=== PATIENT | female | born 1990 | race Caucasian/White ===

== ENCOUNTER 2017-12-12 22:35 | Emergency (ER) | payer SELFPAY ==
[~2017-12-12] VITALS: Ht 162.6 cm; Wt 69.9 kg
--- NOTE | 2017-12-12 23:24 | NUR ---
DR URSULA PRASAD MD AT BEDSIDE FOR MSE.
[2017-12-12] MEDS ORDERED: NEOMY/BACITRA/POLYMYXIN B OINT UD PACKET TP ONE ×2 (23:28→23:30)
--- NOTE | 2017-12-12 23:30 | NUR ---
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 2 ABRAISONS NOTED ON L GUZMAN, AND 1 ABRAISON NOTED ON RT HAND. WOUNDS CLEANSED W/ NS, TRIPLE APPLIED, AND DRESSED WITH BANDAGES.
--- NOTE | 2017-12-12 23:40 | NUR ---
Patient discharged to home in stable conditon. Written and verbal after care instructions given. Patient verbalizes understanding of instructions. Pt ambulated from ER w/ steady gait. No distress noted. Pt took all personal belongings.
[2017-12-13 00:29] VITALS: BP 122/80
== END 2017-12-13 00:30 | disposition home or self-care (01) ==
LOC: ER 22:37
DX: S81.852A Open bite, left lower leg, initial encounter (principal); S61.051A Open bite of right thumb without damage to nail, initial encounter; W54.0XXA Bitten by dog, initial encounter; Y93.89 Activity, other specified; Y92.89 Other specified places as the place of occurrence of the external cause; Y99.8 Other external cause status
CPT/HCPCS: A4663